=== PATIENT | female | born 1930 | race Caucasian/White ===

== ENCOUNTER 2017-09-07 12:00 | Emergency (ER) | payer MEDICARE ==
[~2017-09-07] VITALS: Ht 162.6 cm; Wt 59.0 kg
[~2017-09-07 12:00] MED LIST: ADLT ASA LOW81 MG PO; AFRIN 12 HOUR0.05 %; ASPIRIN EC81 MG PO; CALCIUM500 M2 PO; CHOLESTEROL MED?; CLARITIN10 M2 PO; CLARITIN10 MG PO; COUMADIN2 MG PO; COUMADIN3 MG PO; COUMADIN5 MG PO; CRESTOR5 M1 PO; DIFLUCAN100 MG PO; DIGOXIN0.25 MG PO; DOXYCYCL HYC100 MG PO; FISH OIL1000 MG PO; FISH OIL300 MG PO; FLAX SEED1000 MG OR; GARLIC PO; GNP RED YEAST RICE PO; HYDROCORT0.51 EX; LOVASTATIN20 MG PO; MEDDOSEPAK OR; MEDDOSEPAK PO; MOBIC7.5 MG PO; MOTRIN400 MG PO; MULTIVITAMI3 PO; NYSTATIN100000 M1 PO; ONDANSETRON4 MG PO; PRAVASTATIN20 MG PO; RED YEAS1 PO; VITAMIN D1000 UNIT PO; WARFARIN2 MG PO; WARFARIN5 MG PO; ZOFRAN4 MG OR; ZOFRAN4 MG/TAB PO
[2017-09-07] MEDS ORDERED: MULTI VIT PO (12:41)
[2017-09-07] MEDS ORDERED: MUCINEX600 MG PO (14:25)
[2017-09-07 14:30] VITALS: BP 132/60
== END 2017-09-07 14:30 | disposition home or self-care (01) ==
LOC: ED 12:00
DX: R05 Cough (principal); M19.90 Unspecified osteoarthritis, unspecified site; K21.9 Gastro-esophageal reflux disease without esophagitis; F32.9 Major depressive disorder, single episode, unspecified; E78.00 Pure hypercholesterolemia, unspecified

== ENCOUNTER 2017-10-15 00:55 | Emergency (ER) | payer MEDICARE ==
[~2017-10-15] VITALS: Ht 162.6 cm; Wt 60.0 kg
[~2017-10-15 00:55] MED LIST changes: +MUCINEX600 MG PO; +MULTI VIT PO
[2017-10-15 01:22] LABS: HEMATOCRIT 43.6 % (37.0-47.0); HEMOGLOBIN 14.5 g/dl (12.0-16.0); IMMATURE GRANULOCYTES 0.5 % (0.0-1.0); MEAN CELL VOLUME 86.2 fL CALC (80.0-100.0); MEAN CORPUSCULAR HGB 28.7 pG CALC (26.0-32.0); MEAN CORPUSCULAR HGB CONC 33.3 g/L CALC (32.0-36.0); NEUT# 5.5 thou/uL (2.00-7.15); RED BLOOD COUNT 5.06 mill/uL (4.20-5.60); RED CELL DISTRI WIDTH 13.7 % (11.5-15.5)
[2017-10-15 01:37] LABS: ALBUMIN 4.5 g/dL (3.2-5.0); ALKALINE PHOSPHATASE 139 u/l (38-126); AMYLASE 103 u/l (30-110); ANION GAP 16 (6-22 (CALC)); BILIRUBIN, TOTAL 0.6 mg/dL (0.0-1.4); BUN 12 mg/dL (8-23); BUN/CREATININE RATIO 17 (12-20 (CALC)); CALCIUM 9.6 mg/dL (8.4-10.2); CARBON DIOXIDE 26 mmol/l (22-30); CHLORIDE 107 mmol/l (95-108); CREATININE 0.7 mg/dL (0.5-1.0); GFR > 60 ML/MIN (>=60 (CALC)); GFR FOR AFR.AMER. > 60 ML/MIN (>=60 (CALC)); GLUCOSE 127 mg/dL (82-115); LIPASE 236 u/l (23-300); POTASSIUM 3.5 mmol/l (3.5-5.1); SGOT/AST 28 u/l (9-36); SGPT/ALT 28 u/l (11-66); SODIUM 146 mmol/l (137-146); TOTAL PROTEIN 7.7 g/dL (6.3-8.2)
[2017-10-15] MEDS ORDERED: IBUPROFEN600 MG PO (06:40)
[2017-10-15] MEDS ORDERED: COLACE100 MG PO (06:40)
[2017-10-15 06:45] VITALS: BP 121/69
== END 2017-10-15 07:35 | disposition home or self-care (01) ==
LOC: ED 00:55
PROVIDERS: Emergency Medicine
DX: N20.0 Calculus of kidney (principal); R10.32 Left lower quadrant pain; R11.2 Nausea with vomiting, unspecified

== ENCOUNTER → 2018-08-18 | Outpatient (REF) | payer MEDICARE ==
[~2018-08-18] MED LIST changes: +COLACE100 MG PO; +IBUPROFEN600 MG PO
[2018-08-18 08:40] LABS: HEMATOCRIT 40.5 % (37.0-47.0); HEMOGLOBIN 13.5 g/dl (12.0-16.0); IMMATURE GRANULOCYTES 0.2 % (0.0-5.0); MEAN CELL VOLUME 89.6 fL CALC (80.0-100.0); MEAN CORPUSCULAR HGB 29.9 pG CALC (26.0-32.0); MEAN CORPUSCULAR HGB CONC 33.3 g/L CALC (32.0-36.0); NEUT# 2.94 thou/uL (2.00-7.15); RED BLOOD COUNT 4.52 mill/uL (4.20-5.60); RED CELL DISTRI WIDTH 13.3 % (11.5-15.5)
[2018-08-18 09:05] LABS: ALBUMIN 4.2 g/dL (3.2-5.0); ALKALINE PHOSPHATASE 91 u/l (38-126); ANION GAP 13 (6-22 (CALC)); BILIRUBIN, TOTAL 0.6 mg/dL (0.0-1.4); BUN 9 mg/dL (8-23); BUN/CREATININE RATIO 14 (12-20 (CALC)); CALCULATED LDLCHOLESTEROL 152 mg/dL (62-129 (CALC)); CARBON DIOXIDE 28 mmol/l (22-30); CHLORIDE 106 mmol/l (95-108); CHOLESTEROL HDL RATIO 3.5 (<4.4 (CALC)); CREATININE 0.7 mg/dL (0.5-1.0); GFR > 60 ML/MIN (>=60 (CALC)); GFR FOR AFR.AMER. > 60 ML/MIN (>=60 (CALC)); HDL CHOLESTEROL 72 mg/dL (>=40); POTASSIUM 4.2 mmol/l (3.5-5.1); SGOT/AST 26 u/l (9-36); SODIUM 142 mmol/l (137-146); TOTAL PROTEIN 7.4 g/dL (6.3-8.2); TRIGLYCERIDES REFLEX TO dLDL 155 mg/dl (30-149); VLDL CHOLESTROL 31 mg/dl (0-48 (CALC))
[2018-08-18 09:06] LABS: TOTAL CHOLESTEROL 255 mg/dl (0-199)
[2018-08-18 09:31] LABS: TSH, 3RD GENERATION 1.59 uIU/mL (0.47 - 4.68)
== END | disposition home or self-care (01) ==
LOC: LAB 07:53
PROVIDERS: ATTEND Internal Medicine Geriatric Medicine
DX: I10 Essential (primary) hypertension (principal); E78.5 Hyperlipidemia, unspecified; R53.81 Other malaise

== ENCOUNTER 2018-11-04 10:17 | Emergency (ER) | payer MEDICARE ==
[~2018-11-04] VITALS: Ht 157.5 cm; Wt 70.0 kg
[~2018-11-04 10:17] MED LIST changes: +CALCIUM + D600 MG PO; +EYE HEALTH1 CAP PO; +MULTIVITAMI9 PO; +VIT E D-ALP1000 UNIT PO
[2018-11-04] MEDS ORDERED: TESSALON PERLE100 MG PO (10:34)
[2018-11-04] MEDS ORDERED: DOXYCYC MONO100 M2 PO (10:34)
[2018-11-04 10:51] VITALS: BP 152/89
== END 2018-11-04 10:51 | disposition home or self-care (01) ==
LOC: ED 10:17
DX: J40 Bronchitis, not specified as acute or chronic (principal)

== ENCOUNTER 2018-11-07 08:55 | Inpatient (IN) | payer MEDICARE ==
[~2018-11-07] VITALS: Ht 157.5 cm; Wt 64.1 kg
[~2018-11-07 08:55] MED LIST changes: +DOXYCYC MONO100 M2 PO; +TESSALON PERLE100 MG PO
--- NOTE | 2018-11-07 09:02 | NUR ---
WHEELCHAIR TO ER ROOM 9, TO BED
--- NOTE | 2018-11-07 09:49 | NUR ---
PT VERY TALKATIVE WITHOUT SOB. COUGH LESS SINCE NEBULIZER RX. ANTIBIOTICS INFUSING. IV SITE HEALTHY
[2018-11-07 09:53] LABS: HEMOGLOBIN 13.4 g/dl (12.0-16.0); IMMATURE GRANULOCYTES 0.3 % (0.0-5.0); MEAN CELL VOLUME 88.7 fL CALC (80.0-100.0); MEAN CORPUSCULAR HGB 29.7 pG CALC (26.0-32.0); MEAN CORPUSCULAR HGB CONC 33.5 g/L CALC (32.0-36.0); NEUT# 2.19 thou/uL (2.00-7.15); RED BLOOD COUNT 4.51 mill/uL (4.20-5.60); RED CELL DISTRI WIDTH 13.3 % (11.5-15.5)
[2018-11-07 09:58] LABS: ANION GAP 16 (6-22 (CALC)); BUN 18 mg/dL (8-23); BUN/CREATININE RATIO 31 (12-20 (CALC)); CARBON DIOXIDE 23 mmol/l (22-30); CHLORIDE 105 mmol/l (95-108); CREATININE 0.6 mg/dL (0.5-1.0); GFR > 60 ML/MIN (>=60 (CALC)); GFR FOR AFR.AMER. > 60 ML/MIN (>=60 (CALC)); SODIUM 140 mmol/l (137-146)
--- NOTE | 2018-11-07 10:38 | NUR ---
RESTING,COUGH NON PRODUCTIVE AT PRESENT. 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 PT HAS CONCERNS RE: LIVES ALONE, WILL REQUEST CASE MANAGEMENT REVIEW ON ADM REPORT
--- NOTE | 2018-11-07 11:00 | NUR ---
PLAN OF CARE AGAIN REVIEWED WITH PT. PT ADMITS THAT SHE FORGETS EASILY AND REPEATS HER CONCERN THAT SHE LIVES AT HOME NO FAMILY NEARBY, NEIGHBORS DO HELP SOME.
--- NOTE | 2018-11-07 11:45 | NUR ---
TRANSFERRED TO 26O,RECEIVED BY. Monika GARCIA RN, TRANSFER VIA WHEELCHAIR WITH BELONGINGS . NO VISITORS PRESENT
[2018-11-07 11:50] VITALS: BP 159/85
--- NOTE | 2018-11-07 12:16 | NUR ---
REPORT RECEIVED FROM MICKI IN ID, PT ARRIVED ON UNIT VIA W/C @ 1150, ALERT AND ORIENTED X 3, STATED SHE HAS BEEN COUGHING FOR THE PAST WEEK BUT IN GOT WORSE THIS AM, ALSO REPORTED SHE SEED TREATMENT IN THE ER ON SATURDAY. ORIENTED TO ROOM AND PAMELA CARDENAS, SETTLED IN BED, WILL CONTINUE TO MONITOR.
[2018-11-07 16:00] VITALS: BP 160/70
--- NOTE | 2018-11-07 16:00 | NUR ---
PT HAS POCKET BOOK IN POSSESSION WITH $74.00 IN [place], BANK BOOK, CARDS AND HOME MEDS, PT REFUSED TO HAVE BELONGINGS PUT AWAY IN SAFETY DEPOSIT BOX AND STATED SHE WANTS TO KEEP HER POCKET BOOK RIGHT ON THE BED BESIDE HER, ADVISED SHE IS RESPONSIBLE FOR HER BELONGINGS AND HOSPITAL IS NOT RESPONSIBLE IF SHE SHOULD LOSE ANYTHING, SHE STATED UNDERSTANDING.
--- NOTE | 2018-11-07 16:15 | NUR ---
RESTING IN BED, TALKATIVE, RELAXING AND WATCHING TV, ALL NEEDS ADDRESSED.
[2018-11-07 19:21] VITALS: BP 132/73
--- NOTE | 2018-11-07 21:08 | NUR ---
PT. SITTING UP IN BED WITH NO RESP DISTRESS NOTED; O2 INFUSING PER NC PER ORDER. PT. IS A/A/O WITH FORGETFULLNESS; BED ALARM PLACED; PT. REPORTS SHE HASNT SLEPT IN 3 DAYS; MEDICATED WITH ORDERED PRN RESTORIL PER ORDER AND PT'S REQUEST; PO FLUIDS OFFERED. PT. DENIES NEEDS/PAIN AT THIS TIME. TEDS IN PLACE TO BILATERAL LE; IV SITE PATENT AND INFUSING ORDERED IVF; ENCOURAGED TO CALL FOR ANY NEEDS; CALL LIGHT IS IN REACH.
--- NOTE | 2018-11-07 22:39 | NUR ---
PT. RESTING IN BED WITH EYES CLOSED; RESP EVEN AND UNLABORED.CALL LIGHT IS IN REACH.
--- NOTE | 2018-11-07 23:36 | NUR ---
SCHED MEDICATIONS GIVEN; PT. IS RESTING IN BED WITH EYES CLOSED; AROUSES EASILY; CALL LIGHT IS IN REACH AND BED ALARM IS ON.
--- NOTE | 2018-11-08 03:45 | NUR ---
RESTING IN BED WITH EYES CLOSED; NO DISTRESS NOTED; RESP EVEN AND UNLABORED; CALL LIGHT IS IN REACH.
[2018-11-08 04:39] VITALS: BP 130/63
--- NOTE | 2018-11-08 05:26 | NUR ---
PT. SITTING UP IN BED WITH NO DISTRESS NOTED; SCHED MED GIVEN; ATTEMPTED TO CALL RADIOLOGY FOR AM CXRAY AND NO ANSWER WILL ATTEMPT TO CALL AGAIN AT A LATER TIME; DENIES NEEDS; CALL LIGHT IS IN REACH.
[2018-11-08 05:43] LABS: HEMATOCRIT 35.5 % (37.0-47.0); HEMOGLOBIN 11.9 g/dl (12.0-16.0); IMMATURE GRANULOCYTES 0.5 % (0.0-5.0); MEAN CELL VOLUME 89.6 fL CALC (80.0-100.0); MEAN CORPUSCULAR HGB 30.1 pG CALC (26.0-32.0); MEAN CORPUSCULAR HGB CONC 33.5 g/L CALC (32.0-36.0); NEUT# 2.72 thou/uL (2.00-7.15); RED BLOOD COUNT 3.96 mill/uL (4.20-5.60); RED CELL DISTRI WIDTH 13.2 % (11.5-15.5)
--- NOTE | 2018-11-08 06:04 | NUR ---
NOTIFIED DR. LOVE OF PT'S POSITIVE FLU B FROM YESTERDAY MORNING; PT. IS PLACED ON DROPLET PRECAUTIONS AND PER MD HE WILL PLACE MEDICATION ORDERS INTO CPOE.
[2018-11-08 06:06] LABS: ALBUMIN 3.3 g/dL (3.2-5.0); ALKALINE PHOSPHATASE 86 u/l (38-126); ANION GAP 12 (6-22 (CALC)); BILIRUBIN, TOTAL 0.2 mg/dL (0.0-1.4); BUN 12 mg/dL (8-23); BUN/CREATININE RATIO 27 (12-20 (CALC)); CARBON DIOXIDE 22 mmol/l (22-30); CHLORIDE 109 mmol/l (95-108); CREATININE 0.5 mg/dL (0.5-1.0); GFR > 60 ML/MIN (>=60 (CALC)); GFR FOR AFR.AMER. > 60 ML/MIN (>=60 (CALC)); POTASSIUM 3.7 mmol/l (3.5-5.1); SGOT/AST 25 u/l (9-36); SODIUM 139 mmol/l (137-146); TOTAL PROTEIN 6.2 g/dL (6.3-8.2)
--- NOTE | 2018-11-08 07:46 | NUR ---
SHIFT REPORT, PT AWAKE AND ALERT, COUGHS PERIODICALLY BUT SOME IMPROVEMENT SINCE ADMISSION YESTERDAY, O2 @ 2L VIA NC IN PLACE, IVF INFUSING CALL CARDENAS IN REACH.
[2018-11-08 09:27] VITALS: BP 165/69
[2018-11-08 15:24] VITALS: BP 175/76
[2018-11-08 19:02] VITALS: BP 144/73
[2018-11-08 20:24] VITALS: BP 129/67
--- NOTE | 2018-11-08 21:00 | NUR ---
PT C/O TAMIE. DR LOVE CONTACT. ORDERS RECIEVED FOR SENA.
--- NOTE | 2018-11-08 22:00 | NUR ---
PT TEARFUL AND ANXIOUS ABOUT GOING HOME. DR LOVE NOTIFIED. ORDERS RECIEVED FOR XANAX.
[2018-11-08 22:17] VITALS: BP 114/50
--- NOTE | 2018-11-08 22:30 | NUR ---
BP MONITORED FOR HYPERTENSION. NO MEDICATION ADMINISTRATION NEEDED D/T SBP UNDER 130. WILL CONTINUE TO MONITOR.
[2018-11-09 04:00] VITALS: BP 129/66
--- NOTE | 2018-11-09 04:10 | NUR ---
PT ATTEMPTING TO GET OOB. PT REDIRECTED. BED ALARM REATTACHED. PT ASSISTED TO GE TBACK IN BED. WILL CONTINUE TO MONITOR.
--- NOTE | 2018-11-09 04:21 | NUR ---
PT ATTEMPTING TO GET OUT OF THE BED. PT TERFUL STATED THATSHE IS AFRAID. PT REASSURED THAT SHE WAS SAFE. XANAX ADMINISTERED TO CALM PT. BED ALARM ATTACHED AND FLUIDS HUNG. EDUCATED TO ASK FOR ASSIST BEFORE GETTIGN OUT OF THE BED. PT VOICED UNDERSTANDING BUT NEEDS REINFORCEMENT.BED IN LOWEST POSITION,CALL LIGHT IN REACH. WILL MONITOR.
--- NOTE | 2018-11-09 07:00 | NUR ---
SHIFT REPORT, PT SLEEPING, BREATHING EVEN AND NON LABORED, IVF INFUSING, BODY ALARM IN PLACE, CALL CARDENAS IN REACH.
--- NOTE | 2018-11-09 08:02 | NUR ---
PT AWAKE AND ALERT, REQUESTING TO HAVE ASSISTANCE TO GET DRESSED TO GO HOME AT THIS TIME, ASKING FOR MD. ADVISED OF PLAN OF CARE, ASSISTED WITH MEAL SET-UP AND REASSURED MD WILL BE HARE LATER AND DISCUSS PLANS.
[2018-11-09 09:23] VITALS: BP 128/60
--- NOTE | 2018-11-09 10:30 | NUR ---
DR LOVE ROUNDED, [facility], STATUS CHANGED TO INPT.
[2018-11-09 15:31] VITALS: BP 138/61
[2018-11-09 19:02] VITALS: BP 147/67
--- NOTE | 2018-11-09 19:20 | NUR ---
REPORT RECIEVED FROM SANDRA. PT RESTING IN BED WITH EYES OPEN. PT COMPLETING CROSSWROD PUZZLE. NO PAIN OR ANXIETY NOTED AT THE MONENT. IV PATENT. PT ON DROPLET PRECUTIONS. POC DISCUSSED. PT VOICED UNDERSTANDING. BED IN LOWEST POSTION. CALL LIGHT WITHIN REACH. REMINDED TO CALL IF ASSISTANCE NEEDED.
[2018-11-09 20:54] VITALS: BP 150/73
[2018-11-10 04:01] VITALS: BP 153/74
--- NOTE | 2018-11-10 05:21 | NUR ---
PT RESTING IN BED WITH EYES CLOSED. NO C/O PAIN. NO DISTRESS NOTED. COUGH NOTED.BED ALARM ATTACHED. CALL LIGHT IN REACH. BED IN LOWEST POSITION. WILL CONTINUE TO MONITOR.
[2018-11-10 06:30] VITALS: BP 153/70
--- NOTE | 2018-11-10 07:05 | NUR ---
REPORT RECEIVED BY MEY. PT IS RESTING IN BED AND DENIES NEEDS AT THIS TIME. CALL LIGHT IN REACH.
[2018-11-10 07:44] VITALS: BP 139/80
--- NOTE | 2018-11-10 08:20 | NUR ---
DR. LOVE AT BEDSIDE TO ASSESS PT. ASSESSMENT DONE. PT HAS A DRY COUGH. PT IS A&O X3 BUT FORGETFUL AT TIMES. POC DISCUSS WITH PT. #22 LFA THAT APPEARS HEALTHY. PT DENIES NEEDS. SAFETY PRECAUTION REINFORCED AND CALL LIGHT IN REACH.
--- NOTE | 2018-11-10 12:47 | NUR ---
Discharge instructions given. Patient verbalizes understanding of same. Discharged in stable condition via Wheelchair to Home with staff. All belongings sent with pt.
== END 2018-11-10 12:45 | disposition home or self-care (01) | DRG 195 ==
LOC: ED 08:55 → ED-I 10:10 → ED 10:24 → MS2 10:25
PROVIDERS: Family Medicine; ADMIT Internal Medicine Geriatric Medicine; ATTEND Internal Medicine Geriatric Medicine
DX: J10.1 Influenza due to other identified influenza virus with other respiratory manifestations (principal); I10 Essential (primary) hypertension; E78.5 Hyperlipidemia, unspecified; F41.1 Generalized anxiety disorder; I25.10 Atherosclerotic heart disease of native coronary artery without angina pectoris; E03.9 Hypothyroidism, unspecified; M19.90 Unspecified osteoarthritis, unspecified site; Z60.2 Problems related to living alone
CPT/HCPCS: G0378

== ENCOUNTER → 2019-01-01 | Outpatient (REF) | payer MEDICARE ==
[~2019-01-01] MED LIST changes: +ALPRAZOLAM0.25 M1 PO; +D32000 UNIT PO; +PAIN RELIEF EX500 M1 PO; +VIT E SOLUBL400 UNIT PO; +VITAMIN7 PO
[2019-01-01 10:31] LABS: HEMOGLOBIN 13.5 g/dl (12.0-16.0); IMMATURE GRANULOCYTES 0.4 % (0.0-5.0); MEAN CELL VOLUME 91.8 fL CALC (80.0-100.0); MEAN CORPUSCULAR HGB 29.3 pG CALC (26.0-32.0); MEAN CORPUSCULAR HGB CONC 31.9 g/L CALC (32.0-36.0); NEUT# 2.81 thou/uL (2.00-7.15); RED BLOOD COUNT 4.61 mill/uL (4.20-5.60); RED CELL DISTRI WIDTH 13.4 % (11.5-15.5)
[2019-01-01 10:50] LABS: HEMATOCRIT 42.3 % (37.0-47.0)
[2019-01-01 11:21] LABS: ALBUMIN 4.3 g/dL (3.2-5.0); ALKALINE PHOSPHATASE 111 u/l (38-126); ANION GAP 12 (6-22 (CALC)); BILIRUBIN, TOTAL 0.6 mg/dL (0.0-1.4); BUN 13 mg/dL (8-23); BUN/CREATININE RATIO 19 (12-20 (CALC)); CARBON DIOXIDE 29 mmol/l (22-30); CHLORIDE 105 mmol/l (95-108); CREATININE 0.7 mg/dL (0.5-1.0); GFR > 60 ML/MIN (>=60 (CALC)); GFR FOR AFR.AMER. > 60 ML/MIN (>=60 (CALC)); POTASSIUM 4.4 mmol/l (3.5-5.1); SGOT/AST 21 u/l (9-36); SODIUM 142 mmol/l (137-146); TOTAL PROTEIN 7.3 g/dL (6.3-8.2)
== END | disposition home or self-care (01) ==
LOC: LAB 09:18
PROVIDERS: ATTEND Nurse Practitioner Family
DX: I10 Essential (primary) hypertension (principal)

== ENCOUNTER 2019-01-07 09:00 | Outpatient (RCR) | payer MEDICARE ==
[2018-12-31 10:38] VITALS: BP 128/69
--- NOTE | 2019-01-02 12:13 | NUR ---
Pt. in for treatment team and IOP. Pt. is clean and neat. Alert. Pt. unable to identify day, month or year. Affect very constricted. Mood worried, sacred and sad. Pt. states she has "no money and I have an appointment with the police at 3pm today" Pt. states "the police are going to give me some food" Pt. states an old acquaintance begged her for money and was supposed to return it and did not. Pt. is strongly encouraged to not loan monies. Pt. states she is glad to be in the program. Pt. denies any suicidal ideations. Pt. to continue with her current treatment plan. Pt. is attending IOP 3 times a week with a monthly 1:1. Josué Davenport APRN wrote order for Pt. to stay today for IOP. Will follow up with Pt. in one month. Treatment team is concluded.
[~2019-01-07 09:00] MED LIST changes: -D32000 UNIT PO; -PAIN RELIEF EX500 M1 PO; -VIT E SOLUBL400 UNIT PO; -VITAMIN7 PO
[2019-01-14] MEDS ORDERED: D32000 UNIT PO (10:04)
[2019-01-14] MEDS ORDERED: VIT E SOLUBL400 UNIT PO (10:07)
[2019-01-14] MEDS ORDERED: PAIN RELIEF EX500 M1 PO (10:08)
[2019-02-06] MEDS ORDERED: VITAMIN7 PO (10:30)
== END 2019-01-08 23:59 | disposition still patient (30) ==
LOC: SLIP3 09:00
PROVIDERS: ATTEND Specialist
DX: F41.1 Generalized anxiety disorder (principal); F33.1 Major depressive disorder, recurrent, moderate

== ENCOUNTER 2019-02-05 15:54 | Emergency (ER) | payer MEDICARE ==
[~2019-02-05] VITALS: Ht 157.5 cm; Wt 55.0 kg
[~2019-02-05 15:54] MED LIST changes: +D32000 UNIT PO; +PAIN RELIEF EX500 M1 PO; +VIT E SOLUBL400 UNIT PO
[2019-02-05 18:00] VITALS: BP 138/70
[2019-02-06] MEDS ORDERED: VITAMIN7 PO (10:30)
== END 2019-02-05 18:00 | disposition home or self-care (01) ==
LOC: ED 15:54
DX: S66.812A Strain of other specified muscles, fascia and tendons at wrist and hand level, left hand, initial encounter (principal); Y08.89XA Assault by other specified means, initial encounter; Y93.89 Activity, other specified; Y92.512 Supermarket, store or market as the place of occurrence of the external cause

== ENCOUNTER 2019-02-21 11:06 | Emergency (ER) | payer MEDICARE ==
[~2019-02-21] VITALS: Ht 157.5 cm; Wt 84.0 kg
[~2019-02-21 11:06] MED LIST changes: +VITAMIN7 PO
[2019-02-21 12:50] VITALS: BP 168/77
== END 2019-02-21 12:50 | disposition home or self-care (01) ==
LOC: ED 11:06
DX: S46.911A Strain of unspecified muscle, fascia and tendon at shoulder and upper arm level, right arm, initial encounter (principal); Y04.0XXA Assault by unarmed brawl or fight, initial encounter

== ENCOUNTER 2019-03-22 19:08 | Emergency (ER) | payer MEDICARE ==
[~2019-03-22] VITALS: Ht 157.5 cm; Wt 61.4 kg
[2019-03-22 19:43] VITALS: BP 144/71
== END 2019-03-22 19:43 | disposition home or self-care (01) ==
LOC: ED 19:08
DX: R04.0 Epistaxis (principal); Z79.82 Long term (current) use of aspirin

== ENCOUNTER 2019-03-28 11:38 | Emergency (ER) | payer MEDICARE ==
[~2019-03-28] VITALS: Ht 157.5 cm; Wt 63.6 kg
[2019-03-28 12:09] VITALS: BP 121/77
== END 2019-03-28 12:21 | disposition home or self-care (01) ==
LOC: ED 11:38
DX: R04.0 Epistaxis (principal)

== ENCOUNTER 2019-06-12 08:16 | Emergency (ER) | payer MEDICARE ==
[~2019-06-12] VITALS: Ht 157.5 cm; Wt 59.1 kg
[~2019-06-12 08:16] MED LIST changes: +EQL IBUPROFEN200 MG PO
[2019-06-12 08:44] LABS: HEMATOCRIT 40.8 % (37.0-47.0); HEMOGLOBIN 13.1 g/dl (12.0-16.0); IMMATURE GRANULOCYTES 0.2 % (0.0-5.0); MEAN CELL VOLUME 87.7 fL CALC (80.0-100.0); MEAN CORPUSCULAR HGB 28.2 pG CALC (26.0-32.0); MEAN CORPUSCULAR HGB CONC 32.1 g/L CALC (32.0-36.0); NEUT# 3.12 thou/uL (2.00-7.15); RED BLOOD COUNT 4.65 mill/uL (4.20-5.60); RED CELL DISTRI WIDTH 13.5 % (11.5-15.5)
[2019-06-12 08:57] LABS: ALBUMIN 4.1 g/dL (3.2-5.0); ALKALINE PHOSPHATASE 142 u/l (38-126); ANION GAP 11 (6-22 (CALC)); BILIRUBIN, TOTAL 0.7 mg/dL (0.0-1.4); BUN 10 mg/dL (8-23); BUN/CREATININE RATIO 18 (12-20 (CALC)); CARBON DIOXIDE 26 mmol/l (22-30); CHLORIDE 108 mmol/l (95-108); CREATININE 0.6 mg/dL (0.5-1.0); GFR > 60 ML/MIN (>=60 (CALC)); GFR FOR AFR.AMER. > 60 ML/MIN (>=60 (CALC)); POTASSIUM 3.8 mmol/l (3.5-5.1); SGOT/AST 21 u/l (9-36); SODIUM 142 mmol/l (137-146); TOTAL PROTEIN 7.3 g/dL (6.3-8.2)
[2019-06-12 09:08] LABS: MYOGLOBIN 49 ng/mL (0 - 62)
[2019-06-12] MEDS ORDERED: ANTIVERT PO (10:12)
[2019-06-12 10:42] VITALS: BP 154/88
== END 2019-06-12 10:50 | disposition home or self-care (01) ==
LOC: ED 08:16
PROVIDERS: Emergency Medicine
DX: R42 Dizziness and giddiness (principal)

== ENCOUNTER 2019-08-17 08:44 | Emergency (ER) | payer MEDICARE ==
[~2019-08-17] VITALS: Ht 157.5 cm; Wt 55.0 kg
[~2019-08-17 08:44] MED LIST changes: +ANTIVERT PO
[2019-08-17] MEDS ORDERED: OMEPRAZOLE DR40 MG PO (09:53)
[2019-08-17] MEDS ORDERED: BUPROPION HCL150 M1 PO (09:54)
[2019-08-17] MEDS ORDERED: DONEPEZIL5 MG PO (09:54)
[2019-08-17] MEDS ORDERED: TRAMADOL HYDROC50 MG PO (10:07)
[2019-08-17 10:43] VITALS: BP 128/63
== END 2019-08-17 10:42 | disposition home or self-care (01) ==
LOC: ED 08:44
DX: M25.572 Pain in left ankle and joints of left foot (principal)

== ENCOUNTER 2019-08-20 09:34 | Emergency (ER) | payer MEDICARE ==
[~2019-08-20] VITALS: Ht 157.5 cm; Wt 68.0 kg
[~2019-08-20 09:34] MED LIST changes: +BUPROPION HCL150 M1 PO; +DONEPEZIL5 MG PO; +OMEPRAZOLE DR40 MG PO; +TRAMADOL HYDROC50 MG PO
[2019-08-20 10:25] LABS: HEMATOCRIT 42.1 % (37.0-47.0); HEMOGLOBIN 13.4 g/dl (12.0-16.0); IMMATURE GRANULOCYTES 0.5 % (0.0-5.0); MEAN CELL VOLUME 85.7 fL CALC (80.0-100.0); MEAN CORPUSCULAR HGB 27.3 pG CALC (26.0-32.0); MEAN CORPUSCULAR HGB CONC 31.8 g/L CALC (32.0-36.0); NEUT# 5.04 thou/uL (2.00-7.15); RED BLOOD COUNT 4.91 mill/uL (4.20-5.60); RED CELL DISTRI WIDTH 13.8 % (11.5-15.5)
[2019-08-20 10:44] LABS: ALBUMIN 3.9 g/dL (3.2-5.0); ALKALINE PHOSPHATASE 135 u/l (38-126); ANION GAP 13 (6-22 (CALC)); BILIRUBIN, TOTAL 0.7 mg/dL (0.0-1.4); BUN 7 mg/dL (8-23); BUN/CREATININE RATIO 11 (12-20 (CALC)); CARBON DIOXIDE 26 mmol/l (22-30); CHLORIDE 107 mmol/l (95-108); CREATININE 0.6 mg/dL (0.5-1.0); GFR > 60 ML/MIN (>=60 (CALC)); GFR FOR AFR.AMER. > 60 ML/MIN (>=60 (CALC)); LIPASE 97 u/l (23-300); POTASSIUM 4.1 mmol/l (3.5-5.1); SGOT/AST 18 u/l (9-36); SODIUM 142 mmol/l (137-146); TOTAL PROTEIN 7.2 g/dL (6.3-8.2)
[2019-08-20 11:14] VITALS: BP 153/84
== END 2019-08-20 11:33 | disposition home or self-care (01) ==
LOC: ED 09:34
PROVIDERS: Family Medicine
DX: R11.0 Nausea (principal); R42 Dizziness and giddiness; I48.91 Unspecified atrial fibrillation; R51 Headache

== ENCOUNTER 2019-08-25 03:53 | Emergency (ER) | payer MEDICARE ==
[~2019-08-25] VITALS: Ht 157.5 cm; Wt 67.3 kg
[2019-08-25 05:37] LABS: HEMATOCRIT 41.6 % (37.0-47.0); HEMOGLOBIN 13.4 g/dl (12.0-16.0); IMMATURE GRANULOCYTES 0.3 % (0.0-5.0); MEAN CELL VOLUME 85.4 fL CALC (80.0-100.0); MEAN CORPUSCULAR HGB 27.5 pG CALC (26.0-32.0); MEAN CORPUSCULAR HGB CONC 32.2 g/L CALC (32.0-36.0); NEUT# 3.41 thou/uL (2.00-7.15); RED BLOOD COUNT 4.87 mill/uL (4.20-5.60); RED CELL DISTRI WIDTH 13.9 % (11.5-15.5)
[2019-08-25 05:52] LABS: ALKALINE PHOSPHATASE 153 u/l (38-126); AMYLASE 60 u/l (30-110); ANION GAP 12 (6-22 (CALC)); BILIRUBIN, TOTAL 0.5 mg/dL (0.0-1.4); BUN 5 mg/dL (8-23); BUN/CREATININE RATIO 7 (12-20 (CALC)); CARBON DIOXIDE 27 mmol/l (22-30); CHLORIDE 106 mmol/l (95-108); CREATININE 0.6 mg/dL (0.5-1.0); GFR > 60 ML/MIN (>=60 (CALC)); GFR FOR AFR.AMER. > 60 ML/MIN (>=60 (CALC)); LIPASE 119 u/l (23-300); MAGNESIUM 1.9 mg/dL (1.6-2.3); POTASSIUM 3.8 mmol/l (3.5-5.1); SGOT/AST 19 u/l (9-36); SODIUM 141 mmol/l (137-146); TOTAL PROTEIN 7.2 g/dL (6.3-8.2)
[2019-08-25 06:21] LABS: TSH, 3RD GENERATION 2.21 uIU/mL (0.47 - 4.68)
[2019-08-25] MEDS ORDERED: HYDROXYZ HCL25 MG PO (06:38)
[2019-08-25 06:51] VITALS: BP 140/74
== END 2019-08-25 06:51 | disposition home or self-care (01) ==
LOC: ED 03:53
PROVIDERS: Family Medicine
DX: F41.9 Anxiety disorder, unspecified (principal); Z60.2 Problems related to living alone

== ENCOUNTER 2019-08-26 12:47 | Emergency (ER) | payer MEDICARE ==
[~2019-08-26] VITALS: Ht 157.5 cm; Wt 54.0 kg
[~2019-08-26 12:47] MED LIST changes: +HYDROXYZ HCL25 MG PO
[2019-08-26 14:17] LABS: HEMATOCRIT 42.7 % (37.0-47.0); HEMOGLOBIN 13.7 g/dl (12.0-16.0); IMMATURE GRANULOCYTES 0.3 % (0.0-5.0); MEAN CELL VOLUME 86.1 fL CALC (80.0-100.0); MEAN CORPUSCULAR HGB 27.6 pG CALC (26.0-32.0); MEAN CORPUSCULAR HGB CONC 32.1 g/L CALC (32.0-36.0); NEUT# 3.68 thou/uL (2.00-7.15); RED BLOOD COUNT 4.96 mill/uL (4.20-5.60); RED CELL DISTRI WIDTH 14.1 % (11.5-15.5)
[2019-08-26 14:20] LABS: ANION GAP 13 (6-22 (CALC)); BUN 6 mg/dL (8-23); BUN/CREATININE RATIO 9 (12-20 (CALC)); CARBON DIOXIDE 29 mmol/l (22-30); CHLORIDE 104 mmol/l (95-108); CREATININE 0.7 mg/dL (0.5-1.0); GFR > 60 ML/MIN (>=60 (CALC)); GFR FOR AFR.AMER. > 60 ML/MIN (>=60 (CALC)); POTASSIUM 3.5 mmol/l (3.5-5.1); SODIUM 143 mmol/l (137-146)
[2019-08-26 14:43] VITALS: BP 132/70
== END 2019-08-26 14:45 | disposition home or self-care (01) ==
LOC: ED 12:47
PROVIDERS: Family Medicine
DX: S93.402A Sprain of unspecified ligament of left ankle, initial encounter (principal); F03.90 Unspecified dementia, unspecified severity, without behavioral disturbance, psychotic disturbance, mood disturbance, and anxiety; F41.9 Anxiety disorder, unspecified; Y04.8XXA Assault by other bodily force, initial encounter

== ENCOUNTER 2019-08-31 10:45 | Emergency (ER) | payer MEDICARE ==
[~2019-08-31] VITALS: Ht 157.5 cm; Wt 73.0 kg
[2019-08-31 11:26] VITALS: BP 163/78
== END 2019-08-31 11:38 | disposition home or self-care (01) ==
LOC: ED 10:45
DX: Z04.3 Encounter for examination and observation following other accident (principal); F41.9 Anxiety disorder, unspecified; F03.90 Unspecified dementia, unspecified severity, without behavioral disturbance, psychotic disturbance, mood disturbance, and anxiety

== ENCOUNTER 2019-09-02 08:48 | Emergency (ER) | payer MEDICARE ==
[~2019-09-02] VITALS: Ht 157.5 cm; Wt 60.0 kg
[2019-09-02] MEDS ORDERED: VOLTAREN - GENE75 MG PO (10:05)
[2019-09-02 10:20] VITALS: BP 164/72
== END 2019-09-02 10:20 | disposition home or self-care (01) ==
LOC: ED 08:48
DX: S83.91XA Sprain of unspecified site of right knee, initial encounter (principal); M17.11 Unilateral primary osteoarthritis, right knee; F03.90 Unspecified dementia, unspecified severity, without behavioral disturbance, psychotic disturbance, mood disturbance, and anxiety; W18.39XA Other fall on same level, initial encounter; Y92.009 Unspecified place in unspecified non-institutional (private) residence as the place of occurrence of the external cause